=== PATIENT | female | born 1985 | race Caucasian/White ===

== ENCOUNTER 2019-05-28 22:35 | Emergency (ER) | payer OTHER, SELFPAY ==
[2019-05-29] MEDS ORDERED: NA CHLORIDE 0.9% 1,000 ML ONE (00:02)
[2019-05-29 00:24] LABS: BUN Blood Urea Nitrogen 11 mg/dL (7-18); Bicarbonate 25 mmol/L (21-32); Glucose Level 83 mg/dL (74-106); Potassium 3.7 mmol/L (3.5-5.1); Sodium Level 138 mmol/L (136-145)
[2019-05-29 01:57] LABS: Urine Blood TRACE (NEG); Urine Glucose NEGATIVE (NEG); Urine Protein NEGATIVE (NEG); Urine Specific Gravity >1.030 (1.005-1.030)
--- NOTE | 2019-05-29 02:04 | ER ---
Nurse's Notes [facility] Name: Alanna Cassidy Age: 34 yrs Sex: Female : 1985 Arrival Date: 05/28/2019 Time: 22:38 Bed 13 Private MD: Diagnosis: Syncope and collapse Presentation: 05/27 22:38 Chief complaint: EMS states: Pt lightheaded and passed out on bathroom. Pt C/O wh weakness, dizziness and abdominal pain. Pt on 28 weeks of , seen by her OB this morning. Pt stated she lost her amniotic fluid on the 20th week of gestation. Pt stated fetus developing has polycystic kidneys, no bladder and enlarged heart. Coronavirus screen: The patient has NOT traveled to [place] in the past 14 days. Ebola Screen: Patient negative for fever greater than or equal to 101.5 degrees Fahrenheit, and additional compatible Ebola Virus Disease symptoms Patient denies exposure to infectious person. Initial Sepsis Screen: Does the patient meet any 2 criteria? HR > 90 bpm. Does the patient have a suspected source of infection? Yes: Acute abdominal pain. Risk Assessment: Do you want to hurt yourself or someone else? Patient reports no desire to harm self or others. 22:38 Method Of Arrival: EMS: [facility] 22:38 Acuity: MARIBEL 3 23:00 Onset of symptoms was May 28, 2019. 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 - Social history:: Smoking status: Patient reports the use of cigarette tobacco products, denies chronic smoking, but will smoke occasionally. - Family history:: not pertinent. - Hospitalizations: : No recent hospitalization is reported. Screenin:43 Abuse screen: Denies threats or abuse. Denies injuries from another. Nutritional screening: No deficits noted. Tuberculosis screening: No symptoms or risk factors identified. Fall Risk None identified. Assessment: 23:00 General: Appears in no apparent distress. Behavior is calm, cooperative, appropriate for age. Pain: Complains of pain in abdomen Pain does not radiate. Pain currently is 2 out of 10 on a pain scale. Neuro: Level of Consciousness is awake, alert, obeys commands, Oriented to person, place, time, situation, Appropriate for age. Cardiovascular: Heart tones S1 S2. Respiratory: Airway is patent Respiratory effort is even, unlabored, Respiratory pattern is regular, symmetrical, Breath sounds are clear bilaterally. GI: Abdomen is round non-distended, Abd is soft and non tender X 4 quads. : No signs and/or symptoms were reported regarding the genitourinary system. EENT: No signs and/or symptoms were reported regarding the EENT system. Derm: Skin is intact, is healthy with good turgor, Skin is pink, warm \T\ dry. normal. Musculoskeletal: Circulation, motion, and sensation intact. 05/28 00:15 Reassessment: Patient appears in no apparent distress at this time. No changes from previously documented assessment. Patient and/or family updated on plan of care and expected duration. Pain level reassessed. Patient is alert, oriented x 3, equal unlabored respirations, skin warm/dry/pink. 01:30 Reassessment: Patient appears in no apparent distress at this time. No changes from previously documented assessment. Patient and/or family updated on plan of care and expected duration. Pain level reassessed. Patient is alert, oriented x 3, equal unlabored respirations, skin warm/dry/pink. Vital Signs: 05/27 22:38 BP 93 / 52; Pulse 91; Resp 18; Temp 98.9; Pulse Ox 97% ; Weight 68.04 kg; Height 5 ft. 6 in. (167.64 cm); 05/28 00:00 BP 93 / 52; Pulse 86; Resp 18; Pulse Ox 99% on R/A; 01:29 BP 112 / 70; Pulse 79; Resp 18; Pulse Ox 97% on R/A; 05/27 22:38 Body Mass Index 24.21 (68.04 kg, 167.64 cm) ED Course: 03 22:38 Patient arrived in ED. 22:42 Triage completed. 22:43 Victoriano Chawla MD is Attending Physician. rn 22:44 Patient has correct armband on for positive identification. Placed in gown. Bed in low wh position. Call light in reach. Side rails up X 1. Pulse ox on. NIBP on. 22:44 Arm band placed on right wrist. 22:53 Dallas Coppola is Primary Nurse. 23:09 CT Head Brain wo Cont In Process Unspecified. EDMS 05/28 00:20 Missed attempt(s): 22 gauge in left forearm. Bleeding controlled, band aid applied, bb catheter tip intact. Accessed peripheral vein via ultrasound, utilizing dynamic ultrasound technique using Good blood return. Flushes easily. 20 g 8 cm powerglide. 02:19 No provider procedures requiring assistance completed. IV discontinued, intact, bleeding controlled, No redness/swelling at site. Administered Medications: 00:21 Drug: NS 0.9% 1000 ml Route: IV; Rate: 1000 ml; Site: right upper arm; 02:20 Follow up: Response: No adverse reaction; IV Status: Completed infusion Outcome: 02:03 Discharge ordered by . rn 02:19 Discharged to Rehab Facility 02:19 Condition: stable 02:19 Discharge instructions given to patient, Instructed on discharge instructions, follow up and referral plans. POC Demonstrated understanding of instructions, follow-up care, POC 02:45 Patient left the ED. Signatures: Dispatcher [employer] Shari Sharma RN RN bb Nieto, Roman, MD MD rn Habalo, Winsy
--- NOTE | 2019-05-29 02:04 | EDPHYS ---
Physician Documentation [facility] [place], [place] Name: Alanna Cassidy Age: 34 yrs Sex: Female : 1985 Arrival Date: 05/28/2019 Time: 22:38 Bed 13 Private MD: ED Physician Victoriano Chawla HPI: 05/28 01:58 This 34 yrs old Female presents to ER via EMS with complaints of syncope, rn head injury. 01:58 The patient has experienced syncope. Onset: The symptoms/episode began/occurred just rn prior to arrival. Duration: This was a single episode. Associated injury: Head/face:. Current symptoms: Currently, the patient is not experiencing any symptoms. The patient has not experienced similar symptoms in the past. The patient has been recently seen by a physician:. Just seen by her OB doctor yesterday, reports at [facility] for heroin dependence, reports in shower, standing, felt lightheaded and passed out, hit left side of head, no other injuries. Reports and has been told by her OB does not have amniotic fluid, baby has polycystic kidneys and no bladder, they are thinking is genetic problem. No vaginal discharge or bleeding. No abd pain. No urinary symptoms. Denies vomiting/diarrhea. Feels better now, but reports left head pain. . 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 - Social history:: Smoking status: Patient reports the use of cigarette tobacco products, denies chronic smoking, but will smoke occasionally. - Family history:: not pertinent. - Hospitalizations: : No recent hospitalization is reported. ROS: 05/28 01:58 Constitutional: Negative for fever, chills, and weight loss, Eyes: Negative for injury, rn pain, redness, and discharge, Neck: Negative for injury, pain, and swelling, Cardiovascular: Negative for chest pain Respiratory: Negative for shortness of breath, cough, wheezing, and pleuritic chest pain, Abdomen/GI: Negative for abdominal pain, nausea, vomiting, diarrhea, and constipation, MS/Extremity: Negative for injury and deformity, Skin: Negative for injury, rash, and discoloration, Neuro: Negative for weakness, numbness, tingling, and seizure. Exam: :21 ECG was reviewed by the Attending Physician. rn 01:58 Constitutional: This is a well developed, well nourished patient who is awake, alert, rn and in no acute distress. Head/Face: Normocephalic, atraumatic. Eyes: Pupils equal round and reactive to light, extra-ocular motions intact. NO periorbital swelling or ecchymosis. ENT: dry MM Neck: Trachea midline, no thyromegaly or masses palpated, and no cervical lymphadenopathy. Supple, full range of motion without nuchal rigidity, or vertebral point tenderness. No Meningismus. Cardiovascular: Regular rate and rhythm. No pulse deficits. Respiratory: Lungs have equal breath sounds bilaterally, clear to auscultation. No increased work of breathing, no retractions or nasal flaring. Abdomen/GI: Soft, non-tender Skin: Warm, dry MS/ Extremity: Pulses equal, no cyanosis. Neurovascular intact. Full, normal range of motion. Equal circumference. Neuro: Awake and alert, GCS 15, oriented to person, place, time, and situation. Cranial nerves II-XII grossly intact. Motor strength 5/5 in all extremities. Sensory grossly intact. Cerebellar exam normal. Vital Signs: 05/27 22:38 BP 93 / 52; Pulse 91; Resp 18; Temp 98.9; Pulse Ox 97% ; Weight 68.04 kg; Height 5 ft. wh 6 in. (167.64 cm); 05/28 00:00 BP 93 / 52; Pulse 86; Resp 18; Pulse Ox 99% on R/A; 01:29 BP 112 / 70; Pulse 79; Resp 18; Pulse Ox 97% on R/A; 05/27 22:38 Body Mass Index 24.21 (68.04 kg, 167.64 cm) MDM: 05/27 22:43 Patient medically screened. rn 05/28 01:58 Differential Diagnosis: cardiac arrhythmia, idiopathic syncope, vasovagal episode, rn anemia, dehydration, UTI. Data reviewed: vital signs, nurses notes, lab test result(s), EKG, radiologic studies, CT scan, and as a result, I will discharge patient. Counseling: I had a detailed discussion with the patient and/or guardian regarding: the historical points, exam findings, and any diagnostic results supporting the discharge/admit diagnosis, lab results, radiology results, the need for outpatient follow up, to return to the emergency department if symptoms worsen or persist or if there are any questions or concerns that arise at home. Response to treatment: the patient's symptoms have markedly improved after treatment, and as a result, I will discharge patient. Special discussion: I discussed with the patient/guardian in detail that at this point there is no indication for admission to the hospital. It is understood, however, that if the symptoms persist or worsen the patient needs to return immediately for re-evaluation. Based on the history and exam findings, there is no indication for further emergent testing or inpatient evaluation. I discussed with the patient/guardian the need to see the OB Gyne specialist for further evaluation of the symptoms. I discussed with the patient/guardian the need to see the primary care provider for further evaluation of the symptoms. 05/27 22:52 Order name: Basic Metabolic Panel; Complete Time: : rn 05/27 22:52 Order name: CBC with Diff; Complete Time: : rn 05/27 22:52 Order name: CT Head Brain wo Cont rn 05/27 22:52 Order name: Urine Microscopic Only rn 05/28 01:32 Order name: Urine Dipstick--Ancillary (enter results); Complete Time: 02:04 mw2 05/28 02:10 Order name: Urine Culture [facility] 05/27 22:52 Order name: EKG; Complete Time: 22: rn 05/27 22:52 Order name: Cardiac monitoring; Complete Time: 23: rn 05/27 22:52 Order name: EKG - Nurse/Tech; Complete Time: : rn 05/27 22:52 Order name: IV Saline Lock; Complete Time: 00: rn 05/27 22:52 Order name: Labs collected and sent; Complete Time: 00: rn 05/27 22:52 Order name: NPO; Complete Time: 23: rn 05/27 22:52 Order name: O2 Per Protocol; Complete Time: 23: rn 05/27 22:52 Order name: O2 Sat Monitoring; Complete Time: 23: rn 05/27 22:52 Order name: Urine Dipstick-Ancillary (obtain specimen); Complete Time: 01:29 rn EC: Rate is 80 beats/min. Rhythm is regular. QRS [place] is Normal. PA interval is normal. QRS rn interval is normal. QT interval is normal. No Q waves. T waves are Normal. No ST changes noted. Clinical impression: Normal ECG. Interpreted by me. Reviewed by me. Administered Medications: 00:21 Drug: NS 0.9% 1000 ml Route: IV; Rate: 1000 ml; Site: right upper arm; 02:20 Follow up: Response: No adverse reaction; IV Status: Completed infusion Disposition: 05/29/19 02:03 Discharged to Home. Impression: Syncope and collapse. - Condition is Stable. - Discharge Instructions: Head Injury, Adult, Syncope. - Medication Reconciliation Form, Thank You Letter, Antibiotic Education, Prescription Opioid Use form. - Follow up: Private Physician; When: As needed; Reason: Recheck today's complaints, Re-evaluation by your physician. - Problem is new. - Symptoms have improved. Signatures: Dispatcher [employer] EDMS Victoriano Chawla MD MD rn Habalo, Winsy Corrections: (The following items were deleted from the chart) 02:45 02:03 05/29/2019 02:03 Discharged to Home. Impression: Syncope and collapse. Condition is Stable. Forms are Medication Reconciliation Form, Thank You Letter, Antibiotic Education, Prescription Opioid Use. Follow up: Private Physician; When: As needed; Reason: Recheck today's complaints, Re-evaluation by your physician. Problem is new. Symptoms have improved. rn
[2019-05-29 02:08] LABS: Urine RBC NONE SEEN /HPF (NONE SEEN)
[2019-05-29 02:09] LABS: Urine Bacteria >50 /HPF (<20); Urine Culture Reflex Order REFLEXED
[2019-05-29 04:14] VITALS: TEMP 98.9
[2019-05-29 04:43] VITALS: BP 117/70; O2SAT 99
--- NOTE | 2019-05-29 11:27 | RAD REPORT ---
EXAM DESCRIPTION: CT - Head Brain Wo Cont - 05/29/2019 5:27 am CLINICAL HISTORY: 34 years Female syncope, fall COMPARISON: None. TECHNIQUE: Contiguous axial CT images obtained through the brain without IV contrast. This exam was performed according to our department optimization program which includes automated exp osure control, adjustment of the mA and/or kv according to patient size and/or use of iterative recon struction technique. FINDINGS: The ventricles and sulci appear unremarkable. No abnormal areas of decreased density are identified. No acute hemorrhage. No mass lesions. No fluid or significant mucosal thickening in the visualized paranasal sinuses. No depressed calvarial fractures. IMPRESSION: No acute intracranial abnormality is identified. Electronically signed by: Kaz Rivera MD 05/28/2019 11:15 PM HULL DRAFTER Due to temporary technical issues with the PACS/Fluency reporting system, reports are being signed by the in house radiologist as a courtesy to ensure prompt reporting. The interpreting radiologist is f ully responsible for the content of the report.
--- NOTE | 2019-05-29 12:22 | EKG ---
Test Date: 2019-05-28 Test Time: 23:21:25 Cloud Administrator: ANA MEASUREMENT RESULTS: Intervals: Rate: 80 [place]: 116 QRSD: 100 QT: 412 QTc: 475 [place]: P: 69 NJ: 116 QRS: 69 T: 34 INTERPRETIVE STATEMENTS: Normal sinus rhythm Normal ECG No previous ECG available for comparison Electronically Signed On 05-29-19 12:21:22 EXTRACORPOREAL TECHNICIAN by Rosendo Pollock
== END 2019-05-29 02:45 | disposition home or self-care (01) ==
LOC: ER 22:35
DX: O26.893 Other specified pregnancy related conditions, third trimester (principal); O99.333 Smoking (tobacco) complicating pregnancy, third trimester; F17.210 Nicotine dependence, cigarettes, uncomplicated; Z3A.28 28 weeks gestation of pregnancy
CPT/HCPCS: 36415; 70450; 80048; 81003; 81015; 85025; 87086; 87088; 93005; 96360; 96361; 99284